=== PATIENT | male | born 1950 | race Caucasian/White ===

== ENCOUNTER 2024-02-09 10:38 | Emergency (ER) | payer OTHER, SELFPAY ==
[2024-02-09] MEDS ORDERED: Lidocaine 1% w/Epinephrine 1:100K 20 ML VIAL ONE (11:44)
[2024-02-09] MEDS ORDERED: Boostrix 0.5 ML (Tdap) VIAL (>/=7 yrs of age) ONE (11:44)
[2024-02-09] MEDS ORDERED: Bacitracin 1 PK ONE (12:33)
== END 2024-02-09 12:49 | disposition home or self-care (01) ==
LOC: ERS 10:38
DX: S61.412A Laceration without foreign body of left hand, initial encounter (principal); F17.220 Nicotine dependence, chewing tobacco, uncomplicated; W29.3XXA Contact with powered garden and outdoor hand tools and machinery, initial encounter; Z23 Encounter for immunization
CPT/HCPCS: 12002; 90471; 90715

== ENCOUNTER 2024-02-23 09:44 | Emergency (ER) | payer MEDICARE, SELFPAY | END 2024-02-23 11:15 | disposition home or self-care (01) | LOC: ERS 09:44 | DX: S61.012D Laceration without foreign body of left thumb without damage to nail, subsequent encounter (principal); X58.XXXD Exposure to other specified factors, subsequent encounter ==